=== PATIENT | male | born 1955 | race American Indian/Alaskan Native ===

== ENCOUNTER 2017-09-30 19:31 | Emergency (ER) | payer SELFPAY | END 2017-09-30 19:35 | disposition left against medical advice (07) | LOC: ED 19:31 | DX: R42 Dizziness and giddiness (principal); Z53.21 Procedure and treatment not carried out due to patient leaving prior to being seen by health care provider ==

== ENCOUNTER 2021-08-18 09:11 | Emergency (ER) | payer MEDICARE ==
[2021-08-18 09:49] VITALS: BP 137/87
[2021-08-18] MEDS ORDERED: MAGNESIUM CITRATE 300 ML ORAL LIQD PO ONE ×2 (10:22→12:53)
[2021-08-18] MEDS ORDERED: LACTULOSE 20 GM/30 ML ORAL LIQD PO ONE (10:22)
--- NOTE | 2021-08-18 10:59 | XRay Report ---
XR abdomen 2V INDICATION / CLINICAL INFORMATION: constipation. COMPARISON: None available. FINDINGS: TUBES / LINES: None. BOWEL GAS PATTERN: Nonobstructive bowel gas pattern. FREE AIR / EXTRALUMINAL GAS: None seen. ADDITIONAL FINDINGS: No significant additional findings. IMPRESSION: 1. No significant abnormality. Signer Name: Kj Mackay MD Signed: 08/18/2021 10:54 AM Workstation Name: [id number]
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
[2021-08-18] MEDS: LACTULOSE 20 GM/30 ML ORAL LIQD PO ONE (13:07)
== END 2021-08-18 12:49 | disposition home or self-care (01) ==
LOC: ED 09:11
DX: K59.00 Constipation, unspecified (principal); Z88.0 Allergy status to penicillin; F31.9 Bipolar disorder, unspecified
CPT/HCPCS: 74019; 99283